=== PATIENT | male | born 2005 | race Caucasian/White ===

== ENCOUNTER 2025-01-17 23:04 | Emergency (ER) | payer OTHER ==
[~2025-01-17] VITALS: Ht 177.8 cm; Wt 63.5 kg
[~2025-01-17 23:04] MED LIST: AMOX50SU PO; BENADRYL25 MG PO; HYDROCODON-ACET15 ML PO; MULTCH; Prednisone20 MG PO; SULF10OPSA OD; SULTRIEL PO
[2025-01-17 23:45] LABS: BASOPHILS ABSOLUTE AUTO 0.02 K/mm3 (0.00-0.23); BASOPHILS PERCENT AUTO 0 % (0-2); EOSINOPHILS ABSOLUTE AUTO 0.03 K/mm3 (0.00-0.68); EOSINOPHILS PERCENT AUTO 1 % (0-6); Hematocrit 40.4 % (37.0-53.0); Hemoglobin 13.8 g/dL (13.5-17.5); IMMATURE GRAN ABSOLUTE AUTO 0.01 K/mm3 (0.00-0.10); IMMATURE GRAN PERCENT AUTO 0 % (0-1); LYMPHOCYTES ABSOLUTE AUTO 0.94 K/mm3 (0.84-5.20); LYMPHOCYTES PERCENT AUTO 17 % (21-46); MONOCYTES ABSOLUTE AUTO 0.44 K/mm3 (0.16-1.47); MONOCYTES PERCENT AUTO 8 % (4-13); Mean Corpuscular HGB 28.8 pg (26.0-34.0); Mean Corpuscular HGB Conc 34.2 g/dL (31.5-36.5); Mean Corpuscular Volume 84 fL (80-100); Mean Platelet Volume 9.9 fL (9.1-12.4); NEUTROPHILS ABSOLUTE AUTO 4.09 K/mm3 (1.96-9.15); NEUTROPHILS PERCENT AUTO 74 % (41-73); Platelet Count 219 K/mm3 (150-400); RDW Standard Deviation 36.4 fL (35.1-46.3); White Blood Cell Count 5.53 K/mm3 (4.00-11.30)
[2025-01-18 00:06] LABS: Albumin, Blood 4.3 g/dL (3.4-5.0); Albumin/Globulin Ratio 1.4 (0.8-1.8); Bilirubin, Total 0.5 mg/dL (0.1-1.0); Bun/Creatinine Ratio 9.1 (12.0-20.0); Calcium, Blood 8.6 mg/dL (8.5-10.1); Creatinine, Blood 0.88 mg/dL (0.60-1.20); Potassium, Blood 3.9 mmol/L (3.5-5.5); Total Protein, Blood 7.3 g/dL (6.4-8.2)
[2025-01-18 00:56] VITALS: BP 127/70
== END 2025-01-18 00:58 | disposition home or self-care (01) ==
LOC: ER 23:04
PROVIDERS: Physician Assistant
DX: R07.9 Chest pain, unspecified (principal); Z79.52 Long term (current) use of systemic steroids
CPT/HCPCS: 71046; 80053; 85025; 93005; 93010; 99285-25